=== PATIENT | female | born 1955 | race Caucasian/White ===

== ENCOUNTER 2018-08-11 12:40 | Day surgery (SDC) | payer MEDICARE, BC ==
[~2018-08-11] VITALS: Ht 152.4 cm; Wt 56.0 kg
[2018-08-11 13:56] VITALS: Ht 152.4 cm; Wt 56.0 kg
[2018-08-11 14:50] VITALS: BP 145/72; PULSE 51; RESP 20
--- NOTE | 2018-08-11 14:53 | PREAC ---
Date/Time of Note Date/Time of Note DATE: 08/11/18 TIME: 14:52 Anesthesia Eval and Record Evaluation Time Pre-Procedure Interview DATE: 08/11/18 TIME: 14:52 Age 63 Sex female NPO: 8 hrs Preoperative diagnosis GERD, Screening Planned procedure EGD, Colonoscopy Past Medical History Past Medical History: Includes GI: GERD Surgery & Anesthesia Issues No known issue Meds Anticoagulation: No Beta Gian within 24 hr: No Reason Beta Gian not given: Pt. not on B-Gian Reported Medications [None] No Conflict Check 08/11/18 Meds reviewed: Yes Allergies Coded Allergies: No Known Allergy (Unverified , 08/11/18) Allergies Reviewed: Yes Labs/Studies Labs Reviewed: Reviewed by anesthesiologist test: N/A Studies: ECG (n/a), CXR (n/a) Pre-procedure Exam Last vitals Vital Signs Date Temp Pulse Resp B/P (MAP) Pulse Ox O2 O2 Flow FiO2 Time Delivery Rate 08/11/18 97.7 51 20 145/72 98 Room Air 14:50 (96) Airway: Adequate mouth opening, Adequate thyromental dist Mallampati: Mallampati II Teeth: Normal Lung: Normal Heart: Normal ASA Physical Status ASA physical status: 2 Emergency: None Planned Anesthetic General/MAC: MAC Planned Pain Management Parenteral pain med Pre-operative Attestations Prior to commencing anesthesia and surgery, the patient was re-evaluated, there was verification of: *The patient's identity *The results of appropriate recent lab work and preoperative vital signs *The above evaluation not changing prior to induction *Anesthetic plan, risk benefits, alternative and complications discussed with patient/family; questions answered; patient/family understands, accepts and wishes to proceed. CHELSY ZELAYA MD Aug 11, 2018 14:53
[2018-08-11] MEDS ORDERED: PROPOFOL 40 ML ONE (14:55)
--- NOTE | 2018-08-11 15:40 | PAC ---
Date/Time of Note Date/Time of Note DATE: 08/11/18 TIME: 15:39 Post-Anesthesia Notes Post-Anesthesia Note Last documented vital signs Vital Signs Date Temp Pulse Resp B/P (MAP) Pulse Ox O2 O2 Flow FiO2 Time Delivery Rate 08/11/18 97.7 51 20 145/72 98 Room Air 15:40 (96) Activity: WNL Respiratory function: WNL Cardiovascular function: WNL Mental status: Baseline Pain reasonably controlled: Yes Hydration appropriate: Yes Nausea/Vomiting absent: Yes CHELSY ZELAYA MD Aug 11, 2018 15:40
[2018-08-11 16:10] VITALS: BP 130/68; RESP 16
== END 2018-08-11 16:28 | disposition home or self-care (01) ==
LOC: GIL 12:40
PROVIDERS: ATTEND Internal Medicine Gastroenterology
DX: Z12.11 Encounter for screening for malignant neoplasm of colon (principal); K64.8 Other hemorrhoids; K21.0 Gastro-esophageal reflux disease with esophagitis
CPT/HCPCS: 43239; 88305; 88312; 88313; G0121